=== PATIENT | female | born 1975 | race Caucasian/White ===

== ENCOUNTER 2021-03-31 14:34 | Emergency (ER) | payer OTHER ==
[~2021-03-31] VITALS: Ht 149.9 cm; Wt 51.7 kg
[2021-03-31] MEDS ORDERED: FLEXERIL PO (16:06)
[2021-03-31 16:16] VITALS: BP 114/70
== END 2021-03-31 16:17 | disposition home or self-care (01) ==
LOC: M.ERS 14:34
DX: S16.1XXA Strain of muscle, fascia and tendon at neck level, initial encounter (principal); R51.9 Headache, unspecified; V49.9XXA Car occupant (driver) (passenger) injured in unspecified traffic accident, initial encounter; Y93.89 Activity, other specified; Y92.89 Other specified places as the place of occurrence of the external cause; Y99.8 Other external cause status